=== PATIENT | male | born 1960 | race Caucasian/White ===

== ENCOUNTER 2016-11-17 07:33 | Day surgery (SDC) | payer OTHER ==
[~2016-11-17 07:33] MED LIST: NS 500 ML IV 500 ML IV ONE
[2016-11-17] MEDS ORDERED: TETRACAINE 0.5% OPHTH 1 DOSE AFFEYE ONE ×2 (07:47→10:09)
[2016-11-17] MEDS ORDERED: VIGAMOX 0.5% OPHTH 1 DOSE AFFEYE ONE ×4 (07:48→10:09)
[2016-11-17] MEDS ORDERED: PROLENSA OPHTH 1 DOSE AFFEYE ONE (07:59)
[2016-11-17] MEDS ORDERED: ALPHAGAN-P OPHTH 1 DOSE AFFEYE ONE (08:00)
[2016-11-17] MEDS ORDERED: AK-DILATE 2.5% OPHTH 1 DOSE OP ONE ×4 (08:01→08:04)
[2016-11-17] MEDS ORDERED: CYCLOGYL 1% OPHTH 1 DOSE OP ONE ×4 (08:01→08:04)
[2016-11-17] MEDS ORDERED: MYDRIACIL OPHTH 1 DOSE AFFEYE ONE ×4 (08:01→08:04)
[2016-11-17] MEDS ORDERED: BETADINE OPHTH SOLN 5% EACHEYE ONE (10:05)
[2016-11-17] MEDS ORDERED: ADRENALINE CHL INJ IJ ONE ×3 (10:10→10:35)
[2016-11-17] MEDS ORDERED: XYLOCAINE-MPF 1% IJ ONE ×2 (10:10→10:21)
[2016-11-17] MEDS ORDERED: DUOVISC IO ONE ×2 (10:10→10:21)
[2016-11-17] MEDS ORDERED: BSS OPHTH (PLAIN) 500 ML with VANCOMYCIN HCL 500 MG VIAL 25 MG, ADRENALINE CHL INJ 1 MG IR ONE ×6 (10:11)
[2016-11-17 12:15] VITALS: BP 134/76
== END 2016-11-17 11:00 | disposition home or self-care (01) ==
LOC: SURG1 07:33
PROVIDERS: ATTEND Ophthalmology
PROC: 08DJ3ZZ Extraction of Right Lens, Percutaneous Approach (ICD-10-PCS; principal; 2016-11-17 07:30)
PROC: 08RJ3JZ Replacement of Right Lens with Synthetic Substitute, Percutaneous Approach (ICD-10-PCS; principal; 2016-11-17 07:30)
DX: H25.11 Age-related nuclear cataract, right eye (principal); H25.011 Cortical age-related cataract, right eye; H25.041 Posterior subcapsular polar age-related cataract, right eye
CPT/HCPCS: A4217; J0170; J3370